=== PATIENT | male | born 1960 | race Caucasian/White ===

== ENCOUNTER → 2021-03-12 10:56 | Outpatient (CLI) | payer OTHER, MEDICAID, SELFPAY ==
--- NOTE | 2021-03-17 08:17 | P.PFT.S_ITS ---
Pulmonary Function Test Referral & Results Date Patient Seen: 03/12/21 Requesting provider: Fritz Scott Results: The spirometry demonstrates an FVC of 3.34 L which is 67% of predicted. The FEV1 was measured at 0.73 L which is 19% of predicted. The FEV1/FVC ratio was 22 which is 28% of predicted. Following the administration of bronchodilator there was a 20% improvement in FEV1 and a 20% improvement in FEF 25-75% Lung volumes show an SVC of 2.90 L which is 59% of predicted. The diffusing capacity was measured at 16.35 L which is 40% of predicted. The maximum voluntary ventilation was severely reduced Interpretation: This study demonstrates severe obstructive lung disease with FEV1 of only 730 mL. There is evidence of significant benefit following bronchodilator based on 20% improvement in FEV1 and FEF 25-75% There is also moderately severe restrictive lung disease present based on reduction SVC There is also moderately severe reduction diffusing capacity suggesting signi ficant disease at the capillary alveolar level Altogether this is consistent with a diagnosis of severe COPD
== END ==
PROVIDERS: Referring Provider Student in an Organized Health Care Education/Training Program; Visit Provider Student in an Organized Health Care Education/Training Program
DX: J44.9 Chronic obstructive pulmonary disease, unspecified (principal); Z87.891 Personal history of nicotine dependence; Z20.822 Contact with and (suspected) exposure to COVID-19
CPT/HCPCS: 87635; 94060; 94726; 94729; C9803